=== PATIENT | female | born 1965 | race Hispanic/Latino ===

== ENCOUNTER 2016-04-27 15:41 | Outpatient (CLI) | payer BC | END 2016-04-27 15:42 | disposition home or self-care (01) | LOC: LABHHL 15:41 | PROVIDERS: ATTEND Internal Medicine Gastroenterology | DX: Z12.11 Encounter for screening for malignant neoplasm of colon (principal); K63.5 Polyp of colon | CPT/HCPCS: 88305 ==

== ENCOUNTER 2019-07-18 13:08 | Outpatient (CLI) | payer BC ==
--- NOTE | 2019-07-18 14:37 | Mammography Report ---
DIGITAL DIAGNOSTIC MAMMOGRAM WITH CAD, 07/18/2019 INDICATION: -Post clip RT TECHNIQUE: Digital right mammographic imaging was performed. This examination was interpreted with the benefit of Computer-aided Detection analysis. COMPARISON: [facility] 06/26/2019 mammogram FINDINGS: Breast Density: There are scattered areas of fibroglandular density. A U-shaped biopsy clip is now identified within the previously identified circumscribed mass at 2:00. IMPRESSION: Concordant clip deployment. Follow up recommendation: No recall. Post biopsy imaging. A "normal" or negative report should not discourage follow up or biopsy of a clinically significant f inding. A written summary of these findings will be mailed to the patient. The patient will be entered into a mammography reporting system which will generate a reminder letter for the patient's next appointmen t at the appropriate interval. According to the [employer], yearly mammograms are recommended starting at age 40 and continuing as long as a woman is in good health. Breast MRI is recommended for women with an ciara roximately 20-25% or greater lifetime risk of breast cancer, including women with a strong family his tory of breast or ovarian cancer and women who have been treated for Hodgkin's disease. Signer Name: Irvin Barreto MD Signed: 07/18/2019 2:32 PM Workstation Name: [id number]
--- NOTE | 2019-07-18 14:42 | Ultrasound Report ---
ULTRASOUND-GUIDED NEEDLE CORE BIOPSY RIGHT BREAST WITH CLIP PLACEMENT and ULTRASOUND-GUIDED NEEDLE CO RE BIOPSY RIGHT LYMPH NODE BIOPSY CLINICAL: A right breast mass at 2:00 2 cm from the nipple and a suspicious lymph node in the right b reast at 10:00 12 cm from the nipple. Comparison images from [facility] 06/26/2019. FINDINGS: The procedure was explained to the patient and informed consent was obtained. Ultrasound demonstrated the previously identified mass and lymph node. I marked the breast with a felt tip marker and a timeout was called. The skin was prepped with Chloro -Prep and anesthetized with 1% lidocaine. Needle core biopsy was performed at 2:00 2 cm from the nipple through a small dermatotomy using ultra sound guidance, 2% lidocaine with epinephrine for deep anesthesia and a 14-gauge Achieve biopsy devic e. Four cores were obtained and placed in formalin. A clip was deployed within the mass. Needle core biopsy with was performed at 10:00 12 cm from the nipple using ultrasound guidance, 2% li docaine with epinephrine for deep anesthesia and an 18-gauge Achieve biopsy device. 3 cores were obta ined and placed in formalin. A hydromark clip was deployed within the lymph node. The patient tolerated the procedure well and there were no apparent complications. Hemostasis was ach ieved with minimal effort at both sites and sterile dressings were applied. A post procedure mammogram demonstrated concordant clip deployment at 2:00 2 cm from the nipple. She left the department in good condition and was given instructions for wound care and follow-up. IMPRESSION: Uncomplicated ultrasound guided needle core biopsy with clip placement right breast mass and uncomplicated ultrasound-guided needle core biopsy with clip placement right intramammary lymph node. Signer Name: Irvin Barreto MD Signed: 07/18/2019 2:38 PM Workstation Name: [id number]
== END 2019-07-18 13:09 | disposition home or self-care (01) ==
LOC: SPVWC 13:08
PROVIDERS: ATTEND Surgery
DX: N63.12 Unspecified lump in the right breast, upper inner quadrant (principal); I89.8 Other specified noninfective disorders of lymphatic vessels and lymph nodes; N60.31 Fibrosclerosis of right breast
CPT/HCPCS: 38505; 76942; 88305

== ENCOUNTER 2020-01-22 08:00 | Outpatient (CLI) | payer BC ==
--- NOTE | 2020-01-23 14:23 | Ultrasound Report ---
BILATERAL BREAST ULTRASOUND INDICATION: Left breast palpable findings. COMPARISON: 07/18/2019. FINDINGS: Ultrasound of both breasts was performed. RIGHT BREAST: There is a benign-appearing 4 x 4 x 3 mm simple cyst located in the right breast at the 12:00 position, 7 cm from the nipple. An isoechoic 1.1 x 1.5 x 0.6 cm oval mass in the right breast at the 2:00 position, 2 cm from the nipple, represents the site of prior benign biopsy and there is n o significant interval detrimental change. In the right breast at the 10:00 position, 12 cm from the nipple, is a benign-appearing intramammary lymph node. A biopsy marker is located within this lymph n ode which was biopsied and found to be benign. Additionally, there is a benign-appearing 4 mm cyst in the right breast at the 11:00 position, 6 cm from the nipple. LEFT BREAST: Located in the left breast at the 3:00 position, 2 cm from the nipple, is a 7 x 6 x 4 mm complex cyst versus cluster of microcysts. An ultrasound-guided biopsy of this is recommended. In th e left axillary region (site of reported palpable finding) is a 6 x 3 x 8 mm cystic lesion. This is s uspected represent a sebaceous cyst, although portions cannot be definitively identified as intraderm al. IMPRESSION: Left breast complex cyst versus cluster of microcysts at the 3:00 position for which ultrasound-guide d biopsy is recommended. Located within the left axilla is a superficially located lesion which may represent a sebaceous cyst . It is difficult to determine definitively on these images. When the patient returns for the aforeme ntioned biopsy, real-time ultrasound evaluation is recommended. Additional biopsy may be indicated at that time. BI-RADS Category 4: Suspicious for Malignancy. A "normal" or negative report should not discourage follow up or biopsy of a clinically significant f inding. A written summary of these findings will be mailed to the patient. FURTHER INFORMATION: According to the [employer], yearly mammograms are recommend ed starting at age 40 and continuing as long as a woman is in good health. Breast MRI is recommended for women with an approximately 20-25% or greater lifetime risk of breast cancer, including women wi th a strong family history of breast or ovarian cancer and women who have been treated for Hodgkin's disease. Signer Name: Abel Hercules MD Signed: 01/23/2020 2:19 PM Workstation Name: [id number]
== END 2020-01-22 08:01 | disposition home or self-care (01) ==
LOC: SPVWC 08:00
PROVIDERS: ATTEND Surgery
DX: N60.01 Solitary cyst of right breast (principal); R92.2 Inconclusive mammogram

== ENCOUNTER 2020-02-06 08:23 | Outpatient (CLI) | payer BC ==
--- NOTE | 2020-02-06 09:40 | Mammography Report ---
LEFT DIAGNOSTIC MAMMOGRAM INDICATION: Left breast ultrasound-guided biopsy. COMPARISON: 01/22/2020. FINDINGS: Left breast CC and ML mammograms were performed. A U-shaped biopsy marker in the left breas t at the 3:00 position is noted. This represents the site of recent ultrasound-guided core biopsy per formed earlier the same day. IMPRESSION: Mammographic images documenting accurate location of a biopsy marker in the left breast at the 3:00 p osition. BI-RADS Category 4: Suspicious for Malignancy. Signer Name: Abel Hercules MD Signed: 02/06/2020 9:36 AM Workstation Name: [id number]
--- NOTE | 2020-02-06 09:42 | Ultrasound Report ---
ULTRASOUND-GUIDED CORE NEEDLE BIOPSY Left BREAST WITH CLIP PLACEMENT INDICATION: Left breast lesion at the 3:00 position. FINDINGS: Informed consent was obtained. The lesion within the left breast at the 3:00 position, 2 cm from the nipple, was identified with ultrasound. The overlying skin was cleansed with chloro prep and local an esthesia was obtained with a 1% lidocaine solution. Under ultrasound guidance a 14-gauge spring loade d core biopsy needle was advanced to the lesion. A total of 5 core samples were obtained. A U-shaped biopsy marker was placed to emily the site of the biopsy. Specimen samples were placed in formalin and sent to pathology for analysis. Patient tolerated the procedure well and no immediate complications were identified. IMPRESSION: Technically successful ultrasound-guided core biopsy of left breast lesion at the 3:00 position with placement of U shaped biopsy marker. An addendum will be added to this report once pathology results are available. Signer Name: Abel Hercules MD Signed: 02/06/2020 9:37 AM Workstation Name: [id number]
== END 2020-02-06 08:24 | disposition home or self-care (01) ==
LOC: SPVWC 08:23
PROVIDERS: ATTEND Surgery
DX: N63.23 Unspecified lump in the left breast, lower outer quadrant (principal); N60.82 Other benign mammary dysplasias of left breast; N64.89 Other specified disorders of breast
CPT/HCPCS: 88305

== ENCOUNTER 2020-07-08 09:15 | Outpatient (CLI) | payer BC ==
--- NOTE | 2020-07-08 10:58 | Ultrasound Report ---
ULTRASOUND BREAST BILATERAL COMPLETE, 07/08/2020 CLINICAL INFORMATION / INDICATION: Abnormal mammogram. Follow-up left breast biopsy. TECHNIQUE: Complete sonographic evaluation of all 4 quadrants and retroareolar region was performed. COMPARISON: Bilateral breast ultrasound 01/22/20. FINDINGS: RIGHT:There is a 4.1 mm complex cyst at 12:00 7 cm from the nipple, unchanged. There is an adjacent 3 .3 mm similar-appearing complex cyst. There is a 4.8 mm simple cyst at the 12:00 position 6 cm from t he nipple. There is a 1.2 cm ovoid circumscribed isoechoic solid nodule at the 2:00 position 2 cm fro m the nipple which measured 1.5 cm previously. There is a benign lymph node at the 10:00 position 12 cm from the nipple measuring 4.7 mm short axis, smaller than the prior exam. There is a 4.5 mm minima lly complicated cyst at the 11:00 position 6 cm from the nipple, unchanged. LEFT: The complex cystic abnormality at the 3:00 position 2 cm from the nipple is no longer present. There is a blood vessel at the 3:00 position 5 cm from the nipple. No other abnormality is seen in th e left breast. IMPRESSION: No sonographic evidence of malignancy. No routine sonographic follow-up is recommended. Follow up recommendation: Routine yearly BI-RADS Category 2: Benign. A normal or "negative" report should not preclude biopsy or follow-up of a clinically suspicious find ing. Signer Name: Johnson Kohler MD Signed: 07/08/2020 10:53 AM Workstation Name: [id number]
== END 2020-07-08 09:16 | disposition home or self-care (01) ==
LOC: SPVWC 09:15
PROVIDERS: ATTEND Surgery
DX: N60.02 Solitary cyst of left breast (principal); N60.01 Solitary cyst of right breast; N63.11 Unspecified lump in the right breast, upper outer quadrant; R92.8 Other abnormal and inconclusive findings on diagnostic imaging of breast

== ENCOUNTER 2020-08-22 09:58 | Outpatient (CLI) | payer BC ==
--- NOTE | 2020-08-22 12:56 | Mammography Report ---
DIGITAL SCREENING MAMMOGRAM WITH CAD, 08/22/2020 CLINICAL INFORMATION / INDICATION: Routine screening mammography. SCREENING WITH GELY TECHNIQUE: Digital bilateral 2D mammography was obtained in the craniocaudal and mediolateral obliqu e projections. This examination was interpreted with the benefit of Computer-Aided Detection analysis . COMPARISON: 07/18/2019 FINDINGS: Breast Density: Scattered density. No dominant mass, suspicious calcifications, or architectural distortion in either breast. Stable bilateral nodularity and biopsy change. IMPRESSION: No mammographic evidence of malignancy. Follow up recommendation: Routine yearly BI-RADS Category 2: Benign. A "normal" or negative report should not discourage follow up or biopsy of a clinically significant f inding. A written summary of these findings will be mailed to the patient. The patient will be entered into a mammography reporting system which will generate a reminder letter for the patient's next appointmen t at the appropriate interval. The [employer] recommends yearly mammograms starting at age 40 and continuing as l dre as a woman is in good health. Breast MRI is recommended for women with an approximate 20-25% or greater lifetime risk of breast cancer, including women with a strong family history of breast or ova debbie cancer or who have been treated for Hodgkin's disease. Signer Name: Isidro Deutsch MD Signed: 08/22/2020 12:51 PM Workstation Name: [id number]
== END 2020-08-22 09:59 | disposition home or self-care (01) ==
LOC: SPVWC 09:58
PROVIDERS: ATTEND Surgery
DX: Z12.31 Encounter for screening mammogram for malignant neoplasm of breast (principal); N64.89 Other specified disorders of breast
CPT/HCPCS: 77063; 77067